=== PATIENT | female | born 1955 | race Caucasian/White ===

== ENCOUNTER → 2016-04-08 | Outpatient (CLI) | payer MEDICAID | LOC: FIMAGING 14:11 | PROVIDERS: ATTEND Nurse Practitioner Family | DX: R05 Cough (principal) ==

== ENCOUNTER → 2016-04-19 | Outpatient (CLI) | payer MEDICAID | LOC: FIMAGING 10:08 | PROVIDERS: ATTEND Nurse Practitioner Family | DX: N64.4 Mastodynia (principal) | CPT/HCPCS: G0204 ==

== ENCOUNTER → 2016-04-28 | Outpatient (CLI) | payer MEDICAID | LOC: FIMAGING 09:29 | PROVIDERS: ATTEND Nurse Practitioner Family | DX: Z12.39 Encounter for other screening for malignant neoplasm of breast (principal); N64.59 Other signs and symptoms in breast ==

== ENCOUNTER 2017-11-13 15:24 | Emergency (ER) | payer MEDICAID ==
[2017-11-13] MEDS ORDERED: PROPARACAINE 0.5% 15 ML OPHT DROP OP ONE (16:27)
[2017-11-13] MEDS ORDERED: FLUORESCEIN SODIUM 1 MG STRIP OP ONE (16:28)
--- NOTE | 2017-11-13 16:29 | EDPHY ---
H & P Time Seen by Provider: 11/13/17 16:20 HPI/ROS: CHIEF COMPLAINT: Left facial pain and rash HISTORY OF PRESENT ILLNESS: 62-year-old [place] female here with her son who is translating and provides all history here with a chief complaint of left facial pain and rash for the last 2 days. She reports that she started with a tingling sensation in her left ear and then developed upper left dental pain and then developed a rash to the left side of her forehead which then blistered. She scratched the blister and ruptured and that she developed spreading of the rash to the periorbital region. She reports mild eye irritation but no vision changes or starr eye pain. No pain with range of motion of the eye. She is nose no discharge from the eye. There is no injury to the face or R I. She has no history of shingles. She is not immune compromised. REVIEW OF SYSTEMS: Constitutional: No fever, no chills. Eyes: No discharge. ENT: No sore throat. Cardiovascular: No chest pain, no palpitations. Respiratory: No cough, no shortness of breath. Gastrointestinal: No abdominal pain, no vomiting. Genitourinary: No hematuria. Musculoskeletal: No back pain. Skin: + rashes. Neurological: No headache. Smoking Status: Never smoked Physical Exam: General Appearance: Alert and no distress. Eyes: Pupils equal and round no injection. Funduscopic exam reveals no foreign body or hyphema or scleral injection. Under floor seen using Gee lamp there are no dendritic lesions or other ulcerations or corneal lesions seen. Respiratory: Chest is nontender, lungs are clear to auscultation. Cardiac: regular rate and rhythm. Gastrointestinal: Abdomen is soft and nontender, no masses, bowel sounds normal. Musculoskeletal: Neck is supple and nontender. Extremities have full range of motion and are nontender. Skin: No erythematous macular papular rash to the left forehead and left upper eyelid. No obvious abscess appreciated. Constitutional: Initial Vital Signs Temperature (C) 37.2 C 11/13/17 15:35 Heart Rate 117 H 11/13/17 15:35 Respiratory Rate 18 11/13/17 15:35 Blood Pressure 146/96 H 11/13/17 15:35 O2 Sat (%) 96 11/13/17 15:35 O2 Delivery Mode Room Air Allergies/Adverse Reactions: Penicillins Allergy (Verified 11/13/17 15:39) Home Medications: Medication Instructions Recorded Aspirin [Aspirin 81mg (OTC)] 81 mg PO DAILY 05/09/11 Atorvastatin Calcium [Lipitor 40 40 mg PO DAILY 05/09/11 mg (RX)] levETIRAcetam [Keppra 500 mg (RX)] 750 mg PO DAILY 05/29/12 Albuterol [Proventil Neb] 06/20/15 LEVETIRACETAM [Keppra 750 mg] 06/20/15 levOFLOXACIN [levAQUIN] 750 mg PO DAILY #4 tab 06/20/15 Acyclovir 800 mg PO 5XD #35 tab 11/13/17 Cephalexin [Keflex (*)] 500 mg PO Q6H 7 Days #28 cap 11/13/17 Medical Decision Making ED Course/Re-evaluation: 62-year-old female here with 2 days of rash in a dermatomal distribution symptoms consistent with shingles rash. Ophthalmic exam reveals no dendritic lesions. She was started on acyclovir. Given the surrounding erythema and possible secondary cellulitic changes will start her on Keflex also. Her chart does note a penicillin allergy but her son states that she has never actually had penicillin and that is her father who had a penicillin allergy. Patient was referred to Ophthalmology for follow-up to ensure that she did does not developed any ocular lesions. Differential Diagnosis: Margaret Pineda, shingles, abscess, impetigo - Data Points Medications Given: Discontinued Medications Acyclovir (Acyclovir) 800 mg PO EDNOW ONE Stop: 11/13/17 16:37 Last Admin: 11/13/17 16:53 Dose: 800 mg Departure - Departure Disposition: Home, Routine, Self-Care Clinical Impression: Shingles Condition: Good Instructions: Shingles (ED) Additional Instructions: Please follow up with the certified midwife at the number given T today. Call the office this afternoon or tomorrow morning to make an appointment to be seen within next 2-3 days. Additionally follow up with her primary care physician within the next week to ensure her symptoms are improving. Take the entire course of the medication be prescribed. Return to the ER for any worsening symptoms including vision changes, fever, worsening pain, changes in the rash. Referrals: Monik Monet [Primary Care Provider] - As per Instructions Josafat Dumont MD [Medical Doctor] - As per Instructions Prescriptions: Acyclovir 800 mg PO 5XD #35 tab Cephalexin [Keflex (*)] 500 mg PO Q6H 7 Days #28 cap
[2017-11-13] MEDS: ACYCLOVIR 400 MG TAB PO ONE (16:53)
[2017-11-13 17:00] VITALS: BP 138/65
== END 2017-11-13 16:57 | disposition home or self-care (01) ==
DX: B02.9 Zoster without complications (principal)

== ENCOUNTER 2017-11-30 00:29 | Emergency (ER) | payer MEDICAID ==
[2017-11-30 00:35] VITALS: BP 150/84
--- NOTE | 2017-11-30 00:57 | EDPHY ---
H & P Stated Complaint: SHINGLES L EYE PAIN ITCHING NOW BURNING IN EYE Time Seen by Provider: 11/30/17 00:39 HPI/ROS: History obtained using son as science interpreter. HPI The patient presents with left-sided facial and retro-orbital pain which has been worse over the last 2-3 nights. The patient was diagnosed with shingles in V1 distribution on the left when she was in the emergency department on November 13. She was started on acyclovir as well as Keflex for concern for bacterial superinfection. Her ocular exam was unremarkable at that time. Since then she has been compliant with her medications, she has had follow-up with an railroad switchman who said that the shingles had not caused any ocular involvement. [facility]. She was started on ciprofloxacin because she had continued redness of her face. She has been taking this for the last 2 days. The pain she is experiencing now is sharp in associated with itching and numbness of her left face and eye. She does not have any changes in her vision. REVIEW OF SYSTEMS 10 systems were reviewed and negative with the exception of the elements mentioned in the history of present illness. PMHx: Seizures, hypercholesterolemia Soc Hx: Here with her son PHYSICAL General Appearance: Well-appearing EYE EXAM of left eye Visual Acuity: noted from Nurse's notes. Pupils: equal round and reactive to light EOMI Skin: no proptosis, no periorbital erythema or swelling, no vesicles Conjunctivae: not injected, no discharge Cornea: exam with fluoroscein shows no uptake Anterior chamber:normal, no hyphema or hypopyon Parminder-Pen pressures are 10 ENT, Mouth: Mucous membranes moist Respiratory: There are no retractions, lungs are clear to auscultation Cardiovascular: Regular rate and rhythm Gastrointestinal: Abdomen is soft and non-tender, no masses, bowel sounds normal Neurological: A&O, moves all extremities Skin: Warm and dry, slight erythema to her left face in V1 distribution, there are healing lesions of her is nasal eyebrow region Musculoskeletal: Neck is supple non tender Extremities: symmetrical, full range of motion Psychiatric: Patient is oriented X 3, there is no agitation Source: Patient Exam Limitations: No limitations - Personal History Current Tetanus/Diphtheria Vaccine: Yes Current Tetanus Diphtheria and Acellular Pertussis (TDAP): Yes - Medical/Surgical History Hx Asthma: No Hx Chronic Respiratory Disease: No Hx Diabetes: No Hx Cardiac Disease: No Hx Renal Disease: No Hx Cirrhosis: No Hx Alcoholism: No Hx HIV/AIDS: No Hx Splenectomy or Spleen Trauma: No Other PMH: seizures, high cholesterol, cardiac cath - Social History Smoking Status: Never smoked Constitutional: Initial Vital Signs Temperature (C) 36.6 C 11/30/17 00:30 Heart Rate 85 11/30/17 00:30 Respiratory Rate 18 11/30/17 00:30 Blood Pressure 150/84 H 11/30/17 00:30 O2 Sat (%) 94 11/30/17 00:30 O2 Delivery Mode Room Air Allergies/Adverse Reactions: Penicillins Allergy (Verified 11/30/17 00:35) Home Medications: Medication Instructions Recorded Aspirin [Aspirin 81mg (OTC)] 81 mg PO DAILY 05/09/11 Atorvastatin Calcium [Lipitor 40 40 mg PO DAILY 05/09/11 mg (RX)] levETIRAcetam [Keppra 500 mg (RX)] 750 mg PO DAILY 05/29/12 Albuterol [Proventil Neb] 06/20/15 LEVETIRACETAM [Keppra 750 mg] 06/20/15 levOFLOXACIN [levAQUIN] 750 mg PO DAILY #4 tab 06/20/15 Acyclovir 800 mg PO 5XD #35 tab 11/13/17 Cephalexin [Keflex (*)] 500 mg PO Q6H 7 Days #28 cap 11/13/17 Ciprofloxacin [Cipro] 500 mg PO 11/30/17 Gabapentin [Neurontin 300 MG (*)] 300 mg PO HS 14 Days cap 11/30/17 Hydrocodone/Acetaminophen 11/30/17 [Hydrocodone-Acetamin 5-325 mg] Medical Decision Making Differential Diagnosis: 62-year-old female, diagnosed with varicella zoster in the V1 distribution without any ocular involvement is about 2 and half weeks ago presents with is left-sided facial pain, paresthesias, itching. Differential diagnosis includes herpes zoster ophthalmicus, post herpetic neuralgia, conjunctivitis. In the emergency department, I performed slit-lamp and Parminder-Pen exam on patient with normal results. I suspect she is suffering from post herpetic neuralgia. I will prescribe her Neurontin. I have advised her to stop using Pierson as it is causing some side effects. His I will have her follow-up with the [facility]. - Data Points Medications Given: Discontinued Medications Gabapentin (Neurontin) 300 mg PO EDNOW ONE Stop: 11/30/17 01:22 Last Admin: 11/30/17 01:26 Dose: 300 mg Departure - Departure Disposition: Home, Routine, Self-Care Clinical Impression: Post herpetic neuralgia Condition: Good Instructions: Janet (ED) Additional Instructions: You are experiencing post herpetic neuralgia. Because of this, I want you to try a new medication which I have prescribed to you. Please try this for the next 1 week. If you still have symptoms, you will need to follow [facility] with [facility]. Referrals: Monik Monet [Primary Care Provider] - As per Instructions Prescriptions: Gabapentin [Neurontin 300 MG (*)] 300 mg PO HS 14 Days cap
[2017-11-30] MEDS ORDERED: FLUORESCEIN SODIUM 1 MG STRIP OP ONE (01:00)
[2017-11-30] MEDS ORDERED: GABAPENTIN 300 MG CAP PO ONE (01:21)
== END 2017-11-30 01:27 | disposition home or self-care (01) ==
DX: B02.29 Other postherpetic nervous system involvement (principal)

== ENCOUNTER 2018-04-02 12:30 | Emergency (ER) | payer MEDICAID ==
[2018-04-02 14:20] LABS: PLATELET COUNT 317 10^3/uL (150-400)
--- NOTE | 2018-04-02 14:50 | EDPHY ---
H & P Stated Complaint: Fever, flank pain Time Seen by Provider: 04/02/18 14:46 HPI/ROS: CHIEF COMPLAINT: Fever, flank pain HISTORY OF PRESENT ILLNESS: The patient presents the emergency department with complaints of fever flank pain for the past day. The patient has a history of chronic pain from shingles. She reports she has been having sharp pain in her right back above the pelvis for the past day. Patient has been taking Tylenol. The patient denies any melena or hematemesis. The patient denies fever, cough or congestion. The patient does report mild urinary frequency. The patient reports her symptoms are mild to moderate in nature. They are worsened with movement, palpation and sometimes eating. REVIEW OF SYSTEMS: A comprehensive 10 point review of systems is otherwise negative aside from elements mentioned in the history of present illness. Source: Patient Exam Limitations: No limitations - Medical/Surgical History Hx Asthma: No Hx Chronic Respiratory Disease: No Hx Diabetes: No Hx Cardiac Disease: No Hx Renal Disease: No Hx Cirrhosis: No Hx Alcoholism: No Hx HIV/AIDS: No Hx Splenectomy or Spleen Trauma: No Other PMH: seizures, high cholesterol, cardiac cath - Social History Smoking Status: Never smoked - Physical Exam Exam: General Appearance: Alert, no distress Eyes: Pupils equal and round no pallor or injection ENT, Mouth: Mucous membranes moist Respiratory: There are no retractions, lungs are clear to auscultation Cardiovascular: Regular rate and rhythm Gastrointestinal: Abdomen is soft and nontender, no masses, bowel sounds normal Neurological: A&O, normal motor function, normal sensory exam, normal cranial nerves Skin: Warm and dry, no rashes, specifically no evidence of zoster Musculoskeletal: Tenderness to deep palpation over the paraspinal muscles in the right flank. Extremities: symmetrical, full range of motion Psychiatric: Patient is oriented X 3, there is no agitation Constitutional: Initial Vital Signs Temperature (C) 36.4 C 04/02/18 12:34 Heart Rate 88 04/02/18 12:34 Respiratory Rate 16 04/02/18 12:34 Blood Pressure 141/96 H 04/02/18 12:34 O2 Sat (%) 92 04/02/18 12:34 O2 Delivery Mode Room Air Allergies/Adverse Reactions: Penicillins Allergy (Verified 04/02/18 12:33) Home Medications: Medication Instructions Recorded Aspirin [Aspirin 81mg (OTC)] 81 mg PO DAILY 05/09/11 Atorvastatin Calcium [Lipitor 40 40 mg PO DAILY 05/09/11 mg (RX)] levETIRAcetam [Keppra 500 mg (RX)] 750 mg PO DAILY 05/29/12 Albuterol [Proventil Neb] 06/20/15 LEVETIRACETAM [Keppra 750 mg] 06/20/15 levOFLOXACIN [levAQUIN] 750 mg PO DAILY #4 tab 06/20/15 Acyclovir 800 mg PO 5XD #35 tab 11/13/17 Cephalexin [Keflex (*)] 500 mg PO Q6H 7 Days #28 cap 11/13/17 Ciprofloxacin [Cipro] 500 mg PO 11/30/17 Gabapentin [Neurontin 300 MG (*)] 300 mg PO HS 14 Days cap 11/30/17 Hydrocodone/Acetaminophen 11/30/17 [Hydrocodone-Acetamin 5-325 mg] Medical Decision Making - Diagnostics Imaging Results: Imaging Impressions Abdomen/Pelvis CT 04/02/18 14:48 IMPRESSION: 1. No evidence of nephrolithiasis or hydronephrosis 2. Incidental 1.1 cm calcified vascular structure in the splenic hilum suggestive of small splenic artery aneurysm. No prior studies are available for comparison, and continued CT surveillance with contrast is recommended to ensure stability. ED Course/Re-evaluation: The patient presents to the ED for subjective fever and flank pain. The patient is nontoxic well-appearing. She has no clinical evidence of zoster. She has point tenderness noted in her right flank and paraspinal muscle on exam. Patient's CBC, serum chemistries and urinalysis are all negative. CT scan of the abdomen pelvis demonstrates no evidence of nephrolithiasis or ureterolithiasis. At this point time I see no obvious serious explanation for her discomfort. I do feel that she can take NSAIDs as needed for discomfort. The patient should return to the emergency department for any increasing abdominal pain, fever or vomiting. She should follow up with her primary care provider in the next 2-3 days for a recheck. Differential Diagnosis: Differential diagnosis considered includes myofascial strain, nephrolithiasis, ureterolithiasis, zoster, perforation, obstruction, appendicitis - Data Points Laboratory Results: Laboratory Results 04/02/18 13:31 04/02/18 13:31 02/11/19 02/11/19 02/11/19 13:31 13:31 12:41 WBC 6.09 10^3/uL 10^3/uL (3.80-9.50) RBC 4.80 10^6/uL 10^6/uL (4.18-5.33) Hgb 15.0 g/dL g/dL (12.6-16.3) Hct 44.1 % % (38.0-47.0) MCV 91.9 fL fL (81.5-99.8) MCH 31.3 pg pg (27.9-34.1) MCHC 34.0 g/dL g/dL (32.4-36.7) RDW 13.0 % % (11.5-15.2) Plt Count 317 10^3/uL 10^3/uL (150-400) MPV 10.6 fL fL (8.7-11.7) Neut % (Auto) 42.6 % % (39.3-74.2) Lymph % (Auto) 41.2 % % (15.0-45.0) [place] % (Auto) 11.2 % % (4.5-13.0) Eos % (Auto) 4.3 % % (0.6-7.6) Baso % (Auto) 0.5 % % (0.3-1.7) Nucleat RBC Rel Count 0.0 % % (0.0-0.2) Absolute Neuts (auto) 2.60 10^3/uL 10^3/uL (1.70-6.50) Absolute Lymphs (auto) 2.51 10^3/uL 10^3/uL (1.00-3.00) Absolute Monos (auto) 0.68 10^3/uL 10^3/uL (0.30-0.80) Absolute Eos (auto) 0.26 10^3/uL 10^3/uL (0.03-0.40) Absolute Basos (auto) 0.03 10^3/uL 10^3/uL (0.02-0.10) Absolute Nucleated RBC 0.00 10^3/uL 10^3/uL (0-0.01) Immature Gran % 0.2 % % (0.0-1.1) Immature Gran # 0.01 10^3/uL 10^3/uL (0.00-0.10) Sodium 139 mEq/L mEq/L (135-145) Potassium 4.4 mEq/L mEq/L (3.5-5.2) Chloride 109 mEq/L mEq/L (97-110) Carbon Dioxide 20 mEq/l L mEq/l (22-31) Anion Gap 10 mEq/L mEq/L (6-14) BUN 10 mg/dL mg/dL (7-23) Creatinine 0.7 mg/dL mg/dL (0.6-1.0) Estimated GFR > 60 Glucose 96 mg/dL mg/dL (70-100) Calcium 10.0 mg/dL mg/dL (8.5-10.4) Urine Color YELLOW Urine Appearance CLEAR Urine pH 5.0 (5.0-7.5) Ur Specific [place] 1.009 (1.002-1.030) Urine Protein NEGATIVE (NEGATIVE) Urine Ketones NEGATIVE (NEGATIVE) Urine Blood NEGATIVE (NEGATIVE) Urine Nitrate NEGATIVE (NEGATIVE) Urine Bilirubin NEGATIVE (NEGATIVE) Urine Urobilinogen NEGATIVE EU EU (0.2-1.0) Ur Leukocyte Esterase NEGATIVE (NEGATIVE) Urine RBC 1-3 /hpf /hpf (0-3) Urine WBC 1-3 /hpf /hpf (0-3) Ur Epithelial Cells TRACE /lpf /lpf (NONE-1+) Urine Mucus TRACE /lpf /lpf (NONE-1+) Urine Glucose NEGATIVE (NEGATIVE) Departure - Departure Disposition: Home, Routine, Self-Care Clinical Impression: Back pain Condition: Good Instructions: Back Pain (ED) Additional Instructions: 1. Take Ibuprofen or Motrin 600 mg by mouth three times a day. 2. The workup in the emergency department today demonstrates no evidence of a kidney infection, kidney stone, appendicitis or other abnormality. 3. Follow up with your primary care provider for a recheck in the coming week. 4. Return to the ED for markedly worsening symptoms or other concerns. Referrals: Monik Monet [Primary Care Provider] - As per Instructions
[2018-04-02 15:58] VITALS: BP 141/88
== END 2018-04-02 15:58 | disposition home or self-care (01) ==
DX: R50.9 Fever, unspecified (principal); M54.9 Dorsalgia, unspecified